=== PATIENT | female | born 1955 | race Caucasian/White ===

== ENCOUNTER 2025-02-21 09:22 | Outpatient (CLI) | payer MEDICARE ==
[~2025-02-21 09:22] MED LIST: HYDR-3965 PO
--- NOTE | 2025-02-21 10:05 | RADIOLOGY REPORT ---
CLINICAL HISTORY: PELVIC PAIN TECHNIQUE: Complete ultrasound exam of the kidneys and bladder was performed. COMPARISON: None FINDINGS: The right kidney has normal echogenicity and measures 9.4 X 4.3 X 4.6 cm. There is no focal parenchym al abnormality or evidence for stone. There is no hydronephrosis. The left kidney has normal echogenicity and measures 9.4 X 4.9 X 5.3 cm. There is no focal parenchym al abnormality or evidence for stone. There is no hydronephrosis. The bladder is grossly unremarkable. IMPRESSION: NO SIGNIFICANT SONOGRAPHIC ABNORMALITY OF THE KIDNEYS.
== END 2025-02-21 23:59 | disposition home or self-care (01) ==
LOC: RAD 09:22
PROVIDERS: ATTEND Family Medicine
DX: R10.2 Pelvic and perineal pain (principal)
CPT/HCPCS: 76770